=== PATIENT | male | born 1965 | race African-American/Black ===

== ENCOUNTER 2019-05-12 05:21 | Inpatient (IN) | payer MEDICAID ==
[~2019-05-12] VITALS: Ht 172.7 cm; Wt 85.3 kg
[2019-05-12] MEDS ORDERED: LACTATED RINGERS 1,000 ML IV SCH (06:15)
[2019-05-12] MEDS ORDERED: CHOL500010 PO (06:43)
[2019-05-12] MEDS ORDERED: LOSA50TA41 PO (06:43)
[2019-05-12] MEDS ORDERED: GABA-531 PO (06:43)
[2019-05-12] MEDS ORDERED: DOCU-286 PO (06:43)
[2019-05-12] MEDS ORDERED: CLON0.1T PO (06:43)
[2019-05-12 08:09] LABS: CLARITY URINE CLEAR (CLEAR); COLOR URINE YELLOW (YELLOW); KETONES URINE TRACE (NEGATIVE); LEUKOCYTE ESTERASE URINE NEGATIVE (NEGATIVE); NITRITE URINE NEGATIVE (NEGATIVE); OCCULT BLOOD URINE NEGATIVE (NEGATIVE); PROTEIN URINE NEGATIVE (NEGATIVE); SPECIFIC GRAVITY URINE 1.024 (1.005-1.030); UROBILINOGEN URINE 0.2 E.U./dL (0.2-1.0)
[2019-05-12] MEDS ORDERED: THROMBIN (BOVINE) 5000 UNITS/VIAL TOP ONE ×2 (09:33→09:34)
[2019-05-12] MEDS ORDERED: BACITRACIN 15GM TUBE TOP ONE (09:33)
[2019-05-12] MEDS ORDERED: NORMAL SALINE 0.9% 10 ML SYR ONE (09:33)
[2019-05-12] MEDS ORDERED: LIDOCAINE HCL/EPINEPHRINE 1%-EPI 1:100,000 20 ML VIAL ONE (09:34)
[2019-05-12] MEDS ORDERED: BACITRACIN 50,000 UNITS/VIAL ONE (09:34)
[2019-05-12] MEDS ORDERED: ROCURONIUM BROMIDE 10MG/ML VIAL 5ML IV ONE (10:41)
[2019-05-12] MEDS ORDERED: PROPOFOL 200MG/20ML VIAL IV ONE (10:41)
[2019-05-12] MEDS ORDERED: FENTANYL CITRATE/PF 50MCG/ML 2ML VIAL ONE (10:41)
[2019-05-12] MEDS ORDERED: NEOSTIGMINE METHYLSULFATE 1MG/ML 10 ML VIAL ONE (10:41)
[2019-05-12] MEDS ORDERED: GLYCOPYRROLATE 0.2 MG/ML 2ML VIAL ONE (10:42)
[2019-05-12] MEDS ORDERED: MIDAZOLAM HCL 2 MG/2 ML VIAL ONE (10:42)
[2019-05-12] MEDS ORDERED: CLINDAMYCIN 900 MG PREMIX 50 ML IV ONE (10:46)
[2019-05-12] MEDS ORDERED: LABETALOL 5MG/ML SYR 20 MG/4 ML SYRINGE IV PRN (11:00)
[2019-05-12] MEDS ORDERED: HYDROMORPHONE HCL/PF 2MG/ML CPJ IV PRN (11:00)
[2019-05-12] MEDS ORDERED: ONDANSETRON HCL 4MG/2ML INJ IV PRN ×2 (11:00→12:45)
[2019-05-12] MEDS ORDERED: MEPERIDINE HCL/PF 25MG/ML CPJ IV PRN (11:00)
[2019-05-12] MEDS ORDERED: ONDANSETRON HCL 4MG/2ML INJ ONE (11:46)
[2019-05-12] MEDS ORDERED: HYDROMORPHONE HCL/PF 2MG/ML (OR) ONE (11:46)
[2019-05-12] MEDS ORDERED: DEXAMETHASONE 4MG/ML 1ML VIAL ONE (11:46)
[2019-05-12] MEDS ORDERED: NALOXONE INJ IV PRN (13:30)
[2019-05-12] MEDS ORDERED: DIPHENHYDRAMINE INJ IV PRN (13:30)
[2019-05-12] MEDS ORDERED: ONDANSETRON INJ IV PRN (13:30)
[2019-05-12] MEDS: HYDROMORPHONE PCA 10MG/50ML IV PRN (13:51)
[2019-05-12 15:30] VITALS: BP 157/77
[2019-05-12] MEDS ORDERED: DEXT 5%/LACTATED RINGERS 1,000 ML IV SCH (16:45)
[2019-05-12] MEDS ORDERED: CLINDAMYCIN 300 MG in DEXTROSE 5% WATER 50 ML IV SCH (18:00)
[2019-05-12 20:00] VITALS: BP 169/80
[2019-05-13] VITALS: BP 144/79
[2019-05-13] MEDS: CLINDAMYCIN 300 MG in DEXTROSE 5% WATER 50 ML IV SCH ×3 (00:24→16:29)
[2019-05-13 04:00] VITALS: BP 148/91
[2019-05-13] MEDS: CLONIDINE 0.1MG TABLET PO PRN (05:19)
[2019-05-13 07:12] LABS: BASOPHILS % 0.6 % (0.0-2.0); EOSINOPHILS % 0.8 % (0.0-5.0); HEMATOCRIT. 33.6 % (42.0-52.0); HEMOGLOBIN. 12.1 g/dL (14.0-18.0); MEAN CORPUSCULAR HEMOGLOBIN 28.9 pg (28.0-32.0); MEAN CORPUSCULAR VOLUME 80.3 fL (80.0-94.0); MEAN PLATELET VOLUME 10.1 fl (7.4-10.4); MONOCYTES % 13.3 % (2.0-8.0); NEUTROPHILS % 71.3 % (40.0-76.0); PLATELET 166 x1000/uL (130-400); RED BLOOD CELL COUNT 4.19 mill/uL (4.7-6.1); RED CELL DISTRIBUTION WIDTH 13.2 % (11.6-14.6)
[2019-05-13 07:28] LABS: CHLORIDE 106 mEq/L (98-107)
[2019-05-13 08:00] VITALS: BP 156/84
[2019-05-13] MEDS: DEXT 5%/LACTATED RINGERS 1,000 ML IV SCH ×2 (08:00→18:00)
[2019-05-13] MEDS ORDERED: IPRATROPIUM/ALBUTEROL 0.5-3(2.5)MG/3ML NEB HHN PRN (08:45)
[2019-05-13] MEDS: GABAPENTIN 300MG CAPSULE PO SCH (09:12)
[2019-05-13] MEDS: CHOLECALCIFEROL (D3) 1000 UNIT TABLET PO SCH (09:13)
[2019-05-13] MEDS: LOSARTAN POTASSIUM 50 MG TABLET PO SCH (09:15)
[2019-05-13 12:00] VITALS: BP 148/75
[2019-05-13 16:00] VITALS: BP 151/71
[2019-05-13] MEDS ORDERED: ACETAMINOPHEN 325MG TABLET PO PRN (18:00)
[2019-05-13] MEDS ORDERED: HYDROCODONE/APAP 7.5/325MG 1 TAB TABLET PO PRN (18:30)
[2019-05-13 20:00] VITALS: BP 143/72
[2019-05-14] VITALS: BP 103/60
[2019-05-14] MEDS: DEXAMETHASONE 4MG/ML 1ML VIAL IV SCH ×4 (00:20→17:56)
[2019-05-14] MEDS: DOCUSATE SODIUM 250MG CAPSULE PO PRN ×2 (01:43→09:22)
[2019-05-14] MEDS: HYDROMORPHONE PCA 10MG/50ML IV PRN (01:45)
[2019-05-14 05:52] LABS: HEMATOCRIT. 33.6 % (42.0-52.0); HEMOGLOBIN. 12.1 g/dL (14.0-18.0); MEAN CORPUSCULAR HEMOGLOBIN 28.6 pg (28.0-32.0); MEAN CORPUSCULAR VOLUME 79.6 fL (80.0-94.0); MEAN PLATELET VOLUME 10.3 fl (7.4-10.4); PLATELET 180 x1000/uL (130-400); RED BLOOD CELL COUNT 4.22 mill/uL (4.7-6.1); RED CELL DISTRIBUTION WIDTH 13.2 % (11.6-14.6)
[2019-05-14 07:20] LABS: CHLORIDE 101 mEq/L (98-107)
[2019-05-14 08:00] VITALS: BP 121/75
[2019-05-14 08:39] LABS: PLATELET ESTIMATE NORMAL
[2019-05-14] MEDS: LOSARTAN POTASSIUM 50 MG TABLET PO SCH (09:22)
[2019-05-14] MEDS: GABAPENTIN 300MG CAPSULE PO SCH (09:22)
[2019-05-14] MEDS: CHOLECALCIFEROL (D3) 1000 UNIT TABLET PO SCH (09:22)
[2019-05-14 12:00] VITALS: BP 136/68
[2019-05-14] MEDS ORDERED: DOCUSATE SODIUM 250MG CAPSULE PO NR (15:00)
[2019-05-14 16:00] VITALS: BP 137/69
[2019-05-14 20:00] VITALS: BP 164/82
[2019-05-14] MEDS: FAMOTIDINE 20MG TABLET PO SCH (21:43)
[2019-05-14] MEDS: DEXT 5%/LACTATED RINGERS 1,000 ML IV SCH (21:44)
[2019-05-14] MEDS: CLONIDINE 0.1MG TABLET PO PRN (21:44)
[2019-05-15] VITALS: BP 164/84
[2019-05-15 04:00] VITALS: BP 159/78
[2019-05-15 08:00] VITALS: BP 160/76
[2019-05-15] MEDS: DOCUSATE SODIUM 250MG CAPSULE PO SCH (09:16)
[2019-05-15] MEDS: GABAPENTIN 300MG CAPSULE PO SCH (09:16)
[2019-05-15] MEDS: CHOLECALCIFEROL (D3) 1000 UNIT TABLET PO SCH (09:18)
[2019-05-15] MEDS: FAMOTIDINE 20MG TABLET PO SCH ×2 (09:18→20:45)
[2019-05-15] MEDS: LOSARTAN POTASSIUM 50 MG TABLET PO SCH (09:19)
[2019-05-15] MEDS: DEXT 5%/LACTATED RINGERS 1,000 ML IV SCH ×2 (10:13→23:12)
[2019-05-15] MEDS ORDERED: NA PHOS,M-B/NA PHOS,DI-BA ENEMA 118ML PR SCH (10:15)
[2019-05-15 12:00] VITALS: BP 146/75
[2019-05-15] MEDS: MORPHINE SULFATE 4 MG/ML CPJ (NOT FOR IM USE) IV PRN (15:37)
[2019-05-15 20:00] VITALS: BP 148/76
[2019-05-16] VITALS: BP 142/68
[2019-05-16 04:00] VITALS: BP 143/69
[2019-05-16] MEDS: DEXT 5%/LACTATED RINGERS 1,000 ML IV SCH ×2 (06:00→16:07)
[2019-05-16 08:00] VITALS: BP 128/58
[2019-05-16] MEDS: LOSARTAN POTASSIUM 50 MG TABLET PO SCH (08:57)
[2019-05-16] MEDS: DOCUSATE SODIUM 250MG CAPSULE PO SCH (08:57)
[2019-05-16] MEDS: GABAPENTIN 300MG CAPSULE PO SCH (08:58)
[2019-05-16] MEDS: FAMOTIDINE 20MG TABLET PO SCH ×2 (08:58→21:08)
[2019-05-16] MEDS: CHOLECALCIFEROL (D3) 1000 UNIT TABLET PO SCH (08:58)
[2019-05-16] MEDS: MORPHINE SULFATE 4 MG/ML CPJ (NOT FOR IM USE) IV PRN (09:02)
[2019-05-16 12:00] VITALS: BP 166/73
[2019-05-16] MEDS: BISACODYL 5MG TABLET PO PRN (12:24)
[2019-05-16 16:00] VITALS: BP 170/72
[2019-05-16 20:00] VITALS: BP 153/83
[2019-05-17] VITALS: BP 120/58
[2019-05-17 04:00] VITALS: BP 149/73
[2019-05-17 06:30] LABS: CHLORIDE 106 mEq/L (98-107)
[2019-05-17 06:40] LABS: BASOPHILS % 0.8 % (0.0-2.0); EOSINOPHILS % 3.3 % (0.0-5.0); HEMATOCRIT. 29.2 % (42.0-52.0); HEMOGLOBIN. 10.4 g/dL (14.0-18.0); LYMPHOCYTES % 33.7 % (20.0-50.0); MEAN CORPUSCULAR HEMOGLOBIN 28.4 pg (28.0-32.0); MEAN CORPUSCULAR VOLUME 79.6 fL (80.0-94.0); MEAN PLATELET VOLUME 9.5 fl (7.4-10.4); MONOCYTES % 13.3 % (2.0-8.0); NEUTROPHILS % 48.9 % (40.0-76.0); PLATELET 228 x1000/uL (130-400); RED BLOOD CELL COUNT 3.67 mill/uL (4.7-6.1); RED CELL DISTRIBUTION WIDTH 13.1 % (11.6-14.6)
[2019-05-17 08:00] VITALS: BP 155/79
[2019-05-17] MEDS: GABAPENTIN 300MG CAPSULE PO SCH (09:16)
[2019-05-17] MEDS: FAMOTIDINE 20MG TABLET PO SCH ×2 (09:16→22:10)
[2019-05-17] MEDS: CHOLECALCIFEROL (D3) 1000 UNIT TABLET PO SCH (09:16)
[2019-05-17] MEDS: LOSARTAN POTASSIUM 50 MG TABLET PO SCH ×2 (09:16→22:10)
[2019-05-17] MEDS: DOCUSATE SODIUM 250MG CAPSULE PO SCH (09:16)
[2019-05-17 12:00] VITALS: BP 156/79
[2019-05-17] MEDS: BISACODYL 5MG TABLET PO PRN (15:48)
[2019-05-17] MEDS: DEXT 5%/LACTATED RINGERS 1,000 ML IV SCH (15:52)
[2019-05-17 16:00] VITALS: BP 151/71
[2019-05-17 20:00] VITALS: BP 159/65
[2019-05-18 04:00] VITALS: BP 148/75
[2019-05-18 08:00] VITALS: BP 167/80
[2019-05-18] MEDS: GABAPENTIN 300MG CAPSULE PO SCH (08:04)
[2019-05-18] MEDS: CHOLECALCIFEROL (D3) 1000 UNIT TABLET PO SCH (08:04)
[2019-05-18] MEDS: FAMOTIDINE 20MG TABLET PO SCH (08:04)
[2019-05-18] MEDS: DOCUSATE SODIUM 250MG CAPSULE PO SCH (08:04)
[2019-05-18] MEDS: LOSARTAN POTASSIUM 50 MG TABLET PO SCH (08:04)
[2019-05-18] MEDS: CLONIDINE 0.1MG TABLET PO PRN ×2 (08:05→13:49)
[2019-05-18 12:00] VITALS: BP_SYST 158; BP_SYST 166; BP_DIAS 79; BP_DIAS 87
[2019-05-18 13:36] VITALS: BP 167/80
== END 2019-05-18 14:54 | DRG 310 ==
LOC: OR 05:21 → 6EST 05:22
PROVIDERS: ADMIT Internal Medicine; ATTEND Internal Medicine
PROC: 4A11X4G Monitoring of Peripheral Nervous Electrical Activity, Intraoperative, External Approach (ICD-10-PCS; principal; 2019-05-12)
PROC: 0SB20ZZ Excision of Lumbar Vertebral Disc, Open Approach (ICD-10-PCS; 2019-05-12)
PROC: 01NB0ZZ Release Lumbar Nerve, Open Approach (ICD-10-PCS; 2019-05-12)
DX: M51.16 Intervertebral disc disorders with radiculopathy, lumbar region (principal); G82.50 Quadriplegia, unspecified; M47.16 Other spondylosis with myelopathy, lumbar region; G62.9 Polyneuropathy, unspecified; M51.06 Intervertebral disc disorders with myelopathy, lumbar region; N31.9 Neuromuscular dysfunction of bladder, unspecified; R26.9 Unspecified abnormalities of gait and mobility; D64.9 Anemia, unspecified; I10 Essential (primary) hypertension; K59.00 Constipation, unspecified
CPT/HCPCS: 36415; 72100; 76000; 80048; 81003; 86850; 86900; 88304; 88311; 95863; 95925; 95926; 95928; 95929; 97116; 97163; 97530; J1100; J1170; J2250; J2270; J2405; J2704; J2710; J3010; J3490; J7060; J7121

== ENCOUNTER → 2020-04-25 | Outpatient (CLI) | payer MEDICAID ==
[~2020-04-25] MED LIST: CHOL500010 PO; CLON0.1T PO; DOCU-286 PO; GABA-531 PO; LOSA50TA41 PO
== END | disposition home or self-care (01) ==
LOC: LAB 11:38
PROVIDERS: ATTEND Specialist
DX: R05 Cough (principal); Z20.828 Contact with and (suspected) exposure to other viral communicable diseases
CPT/HCPCS: C9803; U0003

== ENCOUNTER 2021-03-03 23:47 | Emergency (ER) | payer OTHER ==
[~2021-03-03] VITALS: Ht 172.7 cm; Wt 87.0 kg
[~2021-03-03 23:47] MED LIST changes: -GABA-531 PO; +GABA-532 PO
[2021-03-04 01:38] LABS: BASOPHILS % 1.2 % (0.0-2.0); EOSINOPHILS % 9.7 % (0.0-5.0); HEMATOCRIT. 37.7 % (42.0-52.0); HEMOGLOBIN. 13.1 g/dL (14.0-18.0); MEAN CORPUSCULAR HEMOGLOBIN 28.7 pg (28.0-32.0); MEAN CORPUSCULAR VOLUME 82.7 fL (80.0-94.0); MEAN PLATELET VOLUME 9.2 fl (7.4-10.4); MONOCYTES % 8.1 % (2.0-8.0); PLATELET 198 x1000/uL (130-400); RED BLOOD CELL COUNT 4.56 mill/uL (4.7-6.1); RED CELL DISTRIBUTION WIDTH 12.8 % (11.6-14.6)
[2021-03-04 01:44] LABS: CHLORIDE 107 mEq/L (98-107)
[2021-03-04 01:51] LABS: *AMPHETAMINES SCREEN URINE NEGATIVE (NEGATIVE)
[2021-03-04 01:52] LABS: *BARBITURATES SCREEN URINE NEGATIVE (NEGATIVE); *BENZODIAZEPINES SCREEN URINE NEGATIVE (NEGATIVE); *COCAINE SCREEN URINE NEGATIVE (NEGATIVE); METHADONE URINE SCREEN NEGATIVE (NEGATIVE); OPIATES URINE SCREEN NEGATIVE (NEGATIVE); PHENCYCLIDINE URINE SCREEN NEGATIVE (NEGATIVE)
[2021-03-04 01:53] LABS: CANNABINOID URINE SCREEN NEGATIVE (NEGATIVE)
[2021-03-04 03:30] VITALS: BP 164/63
== END 2021-03-04 03:57 | disposition home or self-care (01) ==
LOC: ER 23:47
DX: I10 Essential (primary) hypertension (principal); Z88.0 Allergy status to penicillin; Z79.899 Other long term (current) drug therapy
CPT/HCPCS: 36415; 71045; 80053; 80305; 83880; 84484; 85025; 93005; 99285

== ENCOUNTER 2021-03-08 17:32 | Emergency (ER) | payer OTHER ==
[~2021-03-08] VITALS: Ht 172.7 cm; Wt 84.0 kg
[2021-03-08 17:36] VITALS: BP 183/87
[2021-03-08] MEDS ORDERED: PEG4000S5 MT (18:30)
== END 2021-03-08 18:47 | disposition home or self-care (01) ==
LOC: ER 17:32
DX: K59.00 Constipation, unspecified (principal); I10 Essential (primary) hypertension; Z98.890 Other specified postprocedural states; Z88.0 Allergy status to penicillin
CPT/HCPCS: 99281

== ENCOUNTER 2021-05-05 04:14 | Inpatient (IN) | payer OTHER ==
[~2021-05-05] VITALS: Ht 170.2 cm; Wt 85.7 kg
[~2021-05-05 04:14] MED LIST changes: +FAMO-135 MT; +MAG-55 MT; +PEG4000S5 MT
[2021-05-05 05:56] LABS: EOSINOPHILS % 9.7 % (0.0-5.0); LYMPHOCYTES % 32.4 % (20.0-50.0); MEAN CORPUSCULAR HEMOGLOBIN 28.5 pg (28.0-32.0); MEAN PLATELET VOLUME 9.2 fl (7.4-10.4); MONOCYTES % 9.1 % (2.0-8.0); NEUTROPHILS % 47.8 % (40.0-76.0); PLATELET 205 x1000/uL (130-400); RED BLOOD CELL COUNT 4.57 mill/uL (4.7-6.1); RED CELL DISTRIBUTION WIDTH 13.1 % (11.6-14.6)
[2021-05-05 05:59] LABS: CHLORIDE 106 mEq/L (98-107)
[2021-05-05] MEDS ORDERED: ACETAMINOPHEN 325MG TABLET PO PRN (12:15)
[2021-05-05] MEDS ORDERED: ONDANSETRON HCL 4MG/2ML INJ IV PRN (12:15)
[2021-05-05] MEDS ORDERED: CLONIDINE 0.1MG TABLET PO PRN (12:15)
[2021-05-05] MEDS ORDERED: DIPHENHYDRAMINE 50MG/ML VIAL IV PRN (12:15)
[2021-05-05] MEDS: ENOXAPARIN 40MG/0.4ML SYR SUBCUT SCH (12:29)
[2021-05-05] MEDS: AMLODIPINE 5MG TABLET PO SCH (12:29)
[2021-05-05] MEDS: ASPIRIN 81MG EC TABLET PO SCH (13:10)
[2021-05-05 23:30] VITALS: BP 174/86
[2021-05-06] VITALS: BP 174/86
[2021-05-06] MEDS ORDERED: METO-396 PO (02:09)
[2021-05-06] MEDS ORDERED: ASPI-1406 PO (02:09)
[2021-05-06] MEDS ORDERED: *PATIENT'S OWN MEDICATION STORAGE XX SCH (03:45)
[2021-05-06 04:00] VITALS: BP 106/57
[2021-05-06 06:00] LABS: BASOPHILS % 0.9 % (0.0-2.0); EOSINOPHILS % 8.4 % (0.0-5.0); HEMATOCRIT. 37.8 % (42.0-52.0); HEMOGLOBIN. 13.2 g/dL (14.0-18.0); LYMPHOCYTES % 36.2 % (20.0-50.0); MEAN CORPUSCULAR HEMOGLOBIN 28.7 pg (28.0-32.0); MONOCYTES % 9.3 % (2.0-8.0); NEUTROPHILS % 45.2 % (40.0-76.0); PLATELET 208 x1000/uL (130-400); RED BLOOD CELL COUNT 4.61 mill/uL (4.7-6.1); RED CELL DISTRIBUTION WIDTH 12.8 % (11.6-14.6)
[2021-05-06 06:12] LABS: CHLORIDE 108 mEq/L (98-107)
[2021-05-06 06:24] LABS: LDL CHOLESTEROL 115 mg/dL (5-100)
[2021-05-06 06:25] LABS: HDL CHOLESTEROL 42 mg/dL (40-59)
[2021-05-06 08:06] VITALS: BP 126/62
[2021-05-06] MEDS: AMLODIPINE 5MG TABLET PO SCH (10:06)
[2021-05-06] MEDS: ENOXAPARIN 40MG/0.4ML SYR SUBCUT SCH (10:06)
[2021-05-06] MEDS: ASPIRIN 81MG EC TABLET PO SCH (10:06)
[2021-05-06 12:07] VITALS: BP 118/58
[2021-05-06] MEDS: MECLIZINE 25MG TABLET PO PRN ×2 (12:54→18:55)
[2021-05-06 16:01] VITALS: BP 130/64
[2021-05-06 20:00] VITALS: BP 136/66
[2021-05-07] VITALS (7 sets, daily range): BP systolic 116–158; BP diastolic 67–84
[2021-05-07 06:00] LABS: PARTIAL THROMBOPLASTIN TIME 34.9 sec (23.4-31.0)
[2021-05-07 06:26] LABS: BASOPHILS % 0.8 % (0.0-2.0); EOSINOPHILS % 9.3 % (0.0-5.0); HEMATOCRIT. 38.6 % (42.0-52.0); HEMOGLOBIN. 13.2 g/dL (14.0-18.0); LYMPHOCYTES % 35.8 % (20.0-50.0); MEAN CORPUSCULAR HEMOGLOBIN 28.1 pg (28.0-32.0); MEAN CORPUSCULAR VOLUME 82.1 fL (80.0-94.0); MONOCYTES % 8.1 % (2.0-8.0); PLATELET 207 x1000/uL (130-400)
[2021-05-07 06:46] LABS: CHLORIDE 106 mEq/L (98-107)
[2021-05-07] MEDS: AMLODIPINE 5MG TABLET PO SCH (09:16)
[2021-05-07] MEDS: ASPIRIN 81MG EC TABLET PO SCH (09:16)
[2021-05-07] MEDS ORDERED: REGADENOSON 0.4 MG/5 ML IV SCH (11:00)
[2021-05-07] MEDS: METOPROLOL TARTRATE 25MG TABLET PO SCH ×2 (12:47→20:37)
[2021-05-08] VITALS: BP 124/59
[2021-05-08 04:00] VITALS: BP 129/66
[2021-05-08 06:52] LABS: BASOPHILS % 1.2 % (0.0-2.0); EOSINOPHILS % 9.4 % (0.0-5.0); HEMATOCRIT. 40.6 % (42.0-52.0); HEMOGLOBIN. 14.1 g/dL (14.0-18.0); LYMPHOCYTES % 34.9 % (20.0-50.0); MEAN CORPUSCULAR HEMOGLOBIN 28.3 pg (28.0-32.0); MEAN CORPUSCULAR VOLUME 81.2 fL (80.0-94.0); MEAN PLATELET VOLUME 9.7 fl (7.4-10.4); MONOCYTES % 8.9 % (2.0-8.0); NEUTROPHILS % 45.6 % (40.0-76.0); PLATELET 198 x1000/uL (130-400)
[2021-05-08 07:14] LABS: CHLORIDE 106 mEq/L (98-107)
[2021-05-08] MEDS ORDERED: REGADENOSON 0.4 MG/5 ML IV ONE (10:04)
[2021-05-08] MEDS: METOPROLOL TARTRATE 25MG TABLET PO SCH (12:07)
[2021-05-08] MEDS: ASPIRIN 81MG EC TABLET PO SCH (12:07)
[2021-05-08] MEDS: AMLODIPINE 5MG TABLET PO SCH (12:07)
[2021-05-08] MEDS ORDERED: METO25TA6 PO (14:22)
[2021-05-08] MEDS ORDERED: AMLO5TAB88 PO (14:22)
[2021-05-08] MEDS ORDERED: ATOR10TA PO (14:22)
[2021-05-08] MEDS ORDERED: MECL-183 MT (14:23)
[2021-05-08 15:39] VITALS: BP 139/76
[2021-05-08] MEDS ORDERED: ATORVASTATIN CALCIUM 10MG TABLET PO SCH (21:00)
== END 2021-05-08 17:18 | disposition home or self-care (01) | DRG 48 ==
LOC: ER 04:14 → 6WST 10:26 → ENRESERV 21:00
PROVIDERS: ADMIT Internal Medicine; ATTEND Internal Medicine
DX: G90.8 Other disorders of autonomic nervous system (principal); D64.9 Anemia, unspecified; R07.89 Other chest pain; I25.2 Old myocardial infarction; E78.5 Hyperlipidemia, unspecified; K21.9 Gastro-esophageal reflux disease without esophagitis; I10 Essential (primary) hypertension; R26.89 Other abnormalities of gait and mobility; Z20.822 Contact with and (suspected) exposure to COVID-19; Z79.899 Other long term (current) drug therapy; Z88.0 Allergy status to penicillin; R00.2 Palpitations
CPT/HCPCS: 36415; 71045; 78452; 80048; 80053; 80061; 83735; 83880; 84443; 84484; 85025; 85379; 87426; 93005; 93017; 93306; 93880; 93970; 99285; A9500; J1650; J2785; J8597

== ENCOUNTER 2021-05-10 14:35 | Emergency (ER) | payer MEDICAID, OTHER ==
[~2021-05-10] VITALS: Ht 172.7 cm; Wt 86.0 kg
[~2021-05-10 14:35] MED LIST changes: +AMLO5TAB88 PO; +ASPI-1406 PO; +ATOR10TA PO; -CLON0.1T PO; -LOSA50TA41 PO; +MECL-183 MT; +METO25TA6 PO; -PEG4000S5 MT
[2021-05-10 14:50] VITALS: BP 165/87
[2021-05-10 19:41] LABS: BASOPHILS % 0.8 % (0.0-2.0); EOSINOPHILS % 10.3 % (0.0-5.0); HEMATOCRIT. 39.7 % (42.0-52.0); LYMPHOCYTES % 44.8 % (20.0-50.0); MEAN CORPUSCULAR HEMOGLOBIN 28.3 pg (28.0-32.0); MEAN CORPUSCULAR VOLUME 80.4 fL (80.0-94.0); MEAN PLATELET VOLUME 9.6 fl (7.4-10.4); MONOCYTES % 8.6 % (2.0-8.0); NEUTROPHILS % 35.5 % (40.0-76.0); PLATELET 262 x1000/uL (130-400); RED BLOOD CELL COUNT 4.94 mill/uL (4.7-6.1)
[2021-05-10 19:44] LABS: CHLORIDE 103 mEq/L (98-107)
== END 2021-05-10 20:23 | disposition home or self-care (01) ==
LOC: ER 14:35
DX: F41.9 Anxiety disorder, unspecified (principal); I10 Essential (primary) hypertension; Z98.1 Arthrodesis status; Z88.0 Allergy status to penicillin
CPT/HCPCS: 36415; 80053; 84484; 85025; 93005; 99284

== ENCOUNTER 2022-04-25 15:08 | Emergency (ER) | payer MEDICARE, MEDICAID ==
[~2022-04-25] VITALS: Ht 167.6 cm; Wt 77.0 kg
[~2022-04-25 15:08] MED LIST changes: -MECL-183 MT; +MECL-217 MT
[2022-04-25 16:52] LABS: CLARITY URINE CLEAR (CLEAR); COLOR URINE YELLOW (YELLOW); KETONES URINE NEGATIVE (NEGATIVE); LEUKOCYTE ESTERASE URINE NEGATIVE (NEGATIVE); NITRITE URINE NEGATIVE (NEGATIVE); OCCULT BLOOD URINE NEGATIVE (NEGATIVE); PH URINE 5.5 (4.5-8.0); PROTEIN URINE NEGATIVE (NEGATIVE); UROBILINOGEN URINE 0.2 E.U./dL (0.2-1.0)
[2022-04-25] MEDS ORDERED: SODIUM CHLORIDE 0.9% 500 ML IV NR (16:54)
[2022-04-25] MEDS ORDERED: KETOROLAC 15MG/ML VIAL IV NR (17:00)
[2022-04-25 19:34] LABS: BASOPHILS % 0.9 % (0.0-2.0); EOSINOPHILS % 10.9 % (0.0-5.0); HEMATOCRIT. 37.1 % (42.0-52.0); HEMOGLOBIN. 12.7 g/dL (14.0-18.0); LYMPHOCYTES % 32.1 % (20.0-50.0); MEAN CORPUSCULAR HEMOGLOBIN 28.3 pg (28.0-32.0); MEAN CORPUSCULAR VOLUME 82.6 fL (80.0-94.0); MEAN PLATELET VOLUME 10.6 fl (7.4-10.4); NEUTROPHILS % 48.1 % (40.0-76.0); PLATELET 156 x1000/uL (130-400); RED BLOOD CELL COUNT 4.49 mill/uL (4.7-6.1); RED CELL DISTRIBUTION WIDTH 13.4 % (11.6-14.6)
[2022-04-25 19:41] LABS: CHLORIDE 100 mEq/L (98-107)
[2022-04-25] MEDS ORDERED: ACET-2708 MT (19:52)
[2022-04-25] MEDS ORDERED: DICY10CA88 MT (20:06)
[2022-04-25 20:11] VITALS: BP 147/64
== END 2022-04-25 20:19 | disposition home or self-care (01) ==
LOC: ER 15:08
DX: R10.32 Left lower quadrant pain (principal); I10 Essential (primary) hypertension; E78.00 Pure hypercholesterolemia, unspecified; Z98.1 Arthrodesis status; Z88.0 Allergy status to penicillin
CPT/HCPCS: 36415; 74176; 80053; 81003; 83690; 85025; 96374; 99284; J1885

== ENCOUNTER 2022-04-27 13:56 | Emergency (ER) | payer MEDICARE ==
[~2022-04-27] VITALS: Ht 172.7 cm; Wt 81.0 kg
[~2022-04-27 13:56] MED LIST changes: +ACET-2708 MT; +DICY10CA88 MT
[2022-04-27] MEDS ORDERED: KETOROLAC 30MG/ML VIAL IV STA (14:53)
[2022-04-27] MEDS ORDERED: SODIUM CHLORIDE 0.9% 1,000 ML IV ONE (15:15)
[2022-04-27 15:26] LABS: BASOPHILS % 1.3 % (0.0-2.0); EOSINOPHILS % 12.6 % (0.0-5.0); HEMATOCRIT. 34.8 % (42.0-52.0); MEAN CORPUSCULAR HEMOGLOBIN 28.5 pg (28.0-32.0); MEAN CORPUSCULAR VOLUME 82.5 fL (80.0-94.0); MEAN PLATELET VOLUME 10.9 fl (7.4-10.4); MONOCYTES % 8.8 % (2.0-8.0); NEUTROPHILS % 45.3 % (40.0-76.0); PLATELET 149 x1000/uL (130-400); RED BLOOD CELL COUNT 4.22 mill/uL (4.7-6.1); RED CELL DISTRIBUTION WIDTH 13.2 % (11.6-14.6)
[2022-04-27 15:27] LABS: CHLORIDE 100 mEq/L (98-107)
[2022-04-27 16:38] VITALS: BP 161/52
[2022-04-27] MEDS ORDERED: IBUP-2029 MT (18:30)
[2022-04-27] MEDS ORDERED: IOHEXOL-300 100 ML BOTTLE ONE (19:05)
== END 2022-04-27 19:32 | disposition home or self-care (01) ==
LOC: ER 13:56
DX: R10.12 Left upper quadrant pain (principal); I10 Essential (primary) hypertension; Z88.0 Allergy status to penicillin
CPT/HCPCS: 36415; 71045; 74177; 80053; 83605; 83690; 85025; 96361; 96374; 99285; J1885; J7030; Q9967

== ENCOUNTER 2022-11-15 01:24 | Emergency (ER) | payer MEDICARE, MEDICAID ==
[~2022-11-15] VITALS: Ht 177.8 cm; Wt 83.0 kg
[~2022-11-15 01:24] MED LIST changes: +IBUP-2029 MT
[2022-11-15 04:36] LABS: BASOPHILS % 1.3 % (0.0-2.0); EOSINOPHILS % 11.2 % (0.0-5.0); HEMATOCRIT. 36.7 % (42.0-52.0); HEMOGLOBIN. 12.7 g/dL (14.0-18.0); LYMPHOCYTES % 31.3 % (20.0-50.0); MEAN CORPUSCULAR HEMOGLOBIN 28.5 pg (28.0-32.0); MEAN CORPUSCULAR VOLUME 82.5 fL (80.0-94.0); MEAN PLATELET VOLUME 10.8 fl (7.4-10.4); MONOCYTES % 10.5 % (2.0-8.0); NEUTROPHILS % 45.7 % (40.0-76.0); PLATELET 151 x1000/uL (130-400); RED BLOOD CELL COUNT 4.45 mill/uL (4.7-6.1); RED CELL DISTRIBUTION WIDTH 13.2 % (11.6-14.6)
[2022-11-15 05:04] LABS: CHLORIDE 99 mEq/L (98-107)
[2022-11-15] MEDS ORDERED: AMLO10TA80 MT (05:38)
[2022-11-15 05:55] VITALS: BP 114/72
== END 2022-11-15 05:57 | disposition home or self-care (01) ==
LOC: ER 01:24
DX: I10 Essential (primary) hypertension (principal); J40 Bronchitis, not specified as acute or chronic; Z88.0 Allergy status to penicillin; Z79.899 Other long term (current) drug therapy; Z98.890 Other specified postprocedural states
CPT/HCPCS: 36415; 71045; 80053; 83880; 84484; 85025; 93005; 99285

== ENCOUNTER 2022-12-31 02:07 | Emergency (ER) | payer MEDICARE, MEDICAID ==
[~2022-12-31] VITALS: Ht 172.7 cm; Wt 84.0 kg
[~2022-12-31 02:07] MED LIST changes: +AMLO10TA80 MT
[2022-12-31] MEDS ORDERED: IBUPROFEN 600MG TABLET PO STA (05:25)
[2022-12-31 05:32] VITALS: BP 140/77
[2022-12-31] MEDS ORDERED: BENZ200C52 MT (06:45)
== END 2022-12-31 07:00 | disposition home or self-care (01) ==
LOC: ER 02:07
DX: R05.9 Cough, unspecified (principal); Z88.0 Allergy status to penicillin; Z79.899 Other long term (current) drug therapy; Z98.890 Other specified postprocedural states
CPT/HCPCS: 71045; 93005; 99283

== ENCOUNTER 2023-04-04 02:58 | Emergency (ER) | payer MEDICARE, MEDICAID ==
[~2023-04-04] VITALS: Ht 172.7 cm; Wt 81.0 kg
[~2023-04-04 02:58] MED LIST changes: +BENZ200C52 MT
[2023-04-04 03:02] VITALS: BP 153/58; PULSE 58; RESP 16; TEMP 97.9; O2SAT 96
[2023-04-04 04:28] LABS: BASOPHILS % 1.5 % (0.0-2.0); EOSINOPHILS % 11.7 % (0.0-5.0); HEMATOCRIT. 35.3 % (42.0-52.0); HEMOGLOBIN. 12.1 g/dL (14.0-18.0); MEAN CORPUSCULAR HEMOGLOBIN 28.3 pg (28.0-32.0); MEAN CORPUSCULAR VOLUME 82.5 fL (80.0-94.0); MEAN PLATELET VOLUME 9.4 fl (7.4-10.4); NEUTROPHILS % 48.8 % (40.0-76.0); PLATELET 165 x1000/uL (130-400); RED BLOOD CELL COUNT 4.28 mill/uL (4.7-6.1); RED CELL DISTRIBUTION WIDTH 13.2 % (11.6-14.6)
[2023-04-04 04:54] LABS: CHLORIDE 108 mEq/L (98-107)
== END 2023-04-04 09:32 | disposition home or self-care (01) ==
LOC: ER 02:58
DX: I10 Essential (primary) hypertension (principal); R51.9 Headache, unspecified; R42 Dizziness and giddiness
CPT/HCPCS: 36415; 71045; 80053; 83880; 84484; 85025; 93005; 99285

== ENCOUNTER 2025-03-30 17:18 | Emergency (ER) | payer OTHER, MEDICARE, MEDICAID ==
[~2025-03-30] VITALS: Ht 175.3 cm; Wt 90.7 kg
[~2025-03-30 17:18] MED LIST changes: -AMLO10TA80 MT; -AMLO5TAB88 PO; +APIX5TAB PO; -ATOR10TA PO; -BENZ200C52 MT; +CLON0.1T PO; -DICY10CA88 MT; -FAMO-135 MT; +GABA-1180 MT; -GABA-532 PO; -IBUP-2029 MT; +LOSA50TA41 PO; -MAG-55 MT; -MECL-217 MT; -METO25TA6 PO
[2025-03-30 17:19] VITALS: O2SAT 98
[2025-03-30] MEDS ORDERED: LIDO-53 TP (20:06)
[2025-03-30] MEDS ORDERED: ACET-2708 MT (20:06)
[2025-03-30] MEDS: ACETAMINOPHEN 500MG TABLET PO ONE (20:22)
[2025-03-30 20:25] VITALS: BP 159/77; PULSE 70; RESP 18; TEMP 36.9; O2SAT 98
== END 2025-03-30 20:29 | disposition home or self-care (01) ==
LOC: ER 17:18
DX: M54.2 Cervicalgia (principal); I10 Essential (primary) hypertension; I48.91 Unspecified atrial fibrillation; Z55.6 Problems related to health literacy; Z79.01 Long term (current) use of anticoagulants; Z79.899 Other long term (current) drug therapy; Z88.0 Allergy status to penicillin; V89.2XXA Person injured in unspecified motor-vehicle accident, traffic, initial encounter; Y93.89 Activity, other specified; Y92.410 Unspecified street and highway as the place of occurrence of the external cause; Y99.8 Other external cause status
CPT/HCPCS: 99284

== ENCOUNTER 2025-03-31 16:11 | Emergency (ER) | payer MEDICARE, MEDICAID ==
[~2025-03-31] VITALS: Ht 172.7 cm; Wt 82.0 kg
[~2025-03-31 16:11] MED LIST changes: +LIDO-53 TP
[2025-03-31 16:29] VITALS: O2SAT 98
[2025-03-31 16:51] VITALS: BP 157/76; PULSE 64; RESP 20; TEMP 36.9; O2SAT 98
== END 2025-03-31 17:13 | disposition home or self-care (01) ==
LOC: ER 16:11
DX: M54.50 Low back pain, unspecified (principal); I10 Essential (primary) hypertension; Z79.899 Other long term (current) drug therapy; Z88.0 Allergy status to penicillin; Z98.890 Other specified postprocedural states
CPT/HCPCS: 99282

== ENCOUNTER 2025-04-08 12:11 | Emergency (ER) | payer MEDICARE, MEDICAID ==
[~2025-04-08] VITALS: Ht 172.7 cm; Wt 82.0 kg
[2025-04-08 12:18] VITALS: O2SAT 99
[2025-04-08] MEDS: ACETAMINOPHEN 325MG TABLET PO ONE (12:56)
[2025-04-08] MEDS: LIDOCAINE 5% PATCH TOP STA (12:57)
[2025-04-08] MEDS: KETOROLAC 30MG/ML VIAL IM ONE (12:57)
[2025-04-08] MEDS ORDERED: CYCL10TA21 MT (14:19)
[2025-04-08] MEDS ORDERED: LIDO700A30 TP (14:19)
[2025-04-08] MEDS ORDERED: ACET-3800 MT (14:19)
[2025-04-08 14:29] VITALS: BP 137/76; PULSE 54; RESP 16; TEMP 36.7; O2SAT 98
== END 2025-04-08 14:33 | disposition home or self-care (01) ==
LOC: ER 12:11
DX: G89.29 Other chronic pain (principal); M54.50 Low back pain, unspecified; I48.91 Unspecified atrial fibrillation; I10 Essential (primary) hypertension; Z88.0 Allergy status to penicillin; Z79.899 Other long term (current) drug therapy; Z79.82 Long term (current) use of aspirin; Z98.890 Other specified postprocedural states
CPT/HCPCS: 99285; 72131; 96372; J1885